=== PATIENT | male | born 1990 | race Caucasian/White ===

== ENCOUNTER 2019-10-31 12:13 | Observation (INO) | payer BC ==
[2019-10-31 12:35] VITALS: BMI 26.6
[2019-10-31] MEDS ORDERED: Acetaminophen 325 MG TAB PO PRN (13:14)
[2019-10-31] MEDS ORDERED: Ondansetron ODT 4 MG TAB PO PRN (13:14)
[2019-10-31] MEDS ORDERED: Ondansetron PF 4 MG/2 ML Vial IVP PRN (13:14)
[2019-10-31] MEDS ORDERED: Sodium Chloride 0.9% 1,000 ML IV SCH (13:15)
[2019-10-31 14:59] LABS: #Lymphocytes 1.1 thou/uL (1.20-3.40); #Monocytes 0.3 thou/uL (0.11-0.59); #Neutrophils 9.5 thou/uL (1.40-6.50); %Basophils 0.2 % (0.0-1.0); %Eosinophils 0.2 % (0.0-10.0); %Lymphocytes 10.3 % (21.0-51.0); %Monocytes 2.7 % (0.0-10.0); %Neutrophils 86.6 % (42.0-75.0); Hemoglobin 16.7 g/dL (14.0-18.0); Mean Corpuscular HGB CONC 34.5 g/dL (32.0-36.0); Mean Corpuscular Hemoglobin 32.3 pg (27.0-31.0); Mean Corpuscular Volume 93.6 fL (78.0-98.0); Mean Platelet Volume 7.3 fL (7.4-10.4); Platelet Count 344 thou/uL (130-400); RBC Distribution Width 11.3 % (11.5-14.5); Red Blood Cell (RBC) Count 5.19 mill/uL (4.70-6.10)
--- NOTE | 2019-10-31 15:17 | HP ---
The patient does not have a primary care physician. CHIEF COMPLAINT: I was feeling weak and shaky. HISTORY OF PRESENT ILLNESS: Mr. Singh is a pleasant 28-year-old gentleman who has no known past medical history. He says that this morning, he got up and felt very weak and felt like he could hardly breathe. He felt also very lethargic, and as a result, he went to the emergency room at the [facility] ER. There, he was noted to be hypoglycemic. It was also noted that he was hypokalemic and also acidotic. They began replacing his potassium and noticed that his heart rate started to drop down into the 40s. This was concerning, and for this reason, he was transferred to our facility for further evaluation. The patient says that he felt nauseated and he threw up a large amount in the ER there. Denies any diarrhea. No fever. No chills. He says that this has never happened to him before. He does admit that he drank a little bit, he calls it moderately compared to what he normally drinks. He said he had 3 mixed drinks with vodka and seltzer as well as 3 White [employer]aws which are spiked seltzer drinks. He says he drank this in about a 4 hour period of time. He says he had been eating that night and had steak and potatoes, and earlier that day, he had 2 tacos. Other than this, he has no other significant past medical history. REVIEW OF SYSTEMS: All systems were reviewed and are negative except for that mentioned in the history of present illness. PAST MEDICAL HISTORY: No history of any heritable diseases. PAST SURGICAL HISTORY: Negative. ALLERGIES: NO KNOWN DRUG ALLERGIES. SOCIAL HISTORY: He is single. He says he was recently unemployed by the COVID-19 pandemic. He does not smoke tobacco cigarettes, but does smoke marijuana, he says about 1 g every 3 to 4 days. He also has tried cocaine, but has not done that recently, but admits to drinking a couple of drinks a day, and he is single. FAMILY HISTORY: Unknown on his mother's side. His sister has diabetes. CURRENT MEDICATIONS: He takes some allergy medications, and he has had a couple of Tylenol off and on. PHYSICAL EXAMINATION: GENERAL: He is alert and oriented. He appears to be in no acute distress. He is well developed and well nourished. VITAL SIGNS: Blood pressure was 132/78, heart rate 83, respiratory rate of 22, temperature is 97.3. HEENT: Pupils are equal, round, and reactive. Extraocular muscles are intact. His sclerae anicteric. Throat, no erythema, no exudates. NECK: No adenopathy. No bruits. LUNGS: Clear to auscultation. There is no wheezing. No rales. No rhonchi. CARDIOVASCULAR: He has normal S1 and S2. There is no S3 or S4. No murmurs, clicks, or rubs. ABDOMEN: Soft, nontender, and nondistended. Positive for bowel sounds. No rebound. No guarding. No organomegaly. EXTREMITIES: There is no clubbing or cyanosis. No edema. No calf tenderness. No joint effusions. He has palpable dorsalis pedis pulses bilaterally. Good capillary refill. SKIN AND INTEGUMENT: There are no skin changes. No rash. LABORATORY DATA: The sodium is 142, potassium 3.2, chloride is 101, CO2 is 22, BUN of 19, creatinine 0.7, glucose is 84. White blood cell count was 28.4, hemoglobin 16.2, hematocrit is 58.6, and platelets are 370. ASSESSMENT AND PLAN: 1. This is a pleasant 28-year-old gentleman, who presented to the emergency room at the [facility] with hypoglycemia. He was also hypokalemic and also had a leukocytosis. He is being admitted here for observation. The hypoglycemia and acidosis, more than likely this is related to alcoholic ketoacidosis and he has been given D5 normal saline and appears to have improved significantly. We will likely change him to normal saline. Thiamine has already been given and we will continue this daily, and hopefully this should correct his acidosis. 2. Hypokalemia, likely due to the above, and this will be replaced. 3. Leukocytosis. This is unclear. This could be related to demargination from the vomiting, but this will be rechecked again later on this afternoon, and hopefully he will be stable enough to be discharged home. Job ID: [id number]
[2019-10-31 15:22] LABS: Anion Gap 21 mmol/L (10-20); BUN (Urea Nitrogen) 18 mg/dL (8.9-20.6); Calc. Creatinine Clearance 146 mL/min (70-130); Calcium 10.4 mg/dL (7.8-10.44); Carbon Dioxide 22 mmol/L (22-29); Chloride 99 mmol/L (98-107); Estimated GFR-MDRD Greater than 90; Glucose 71 mg/dL (70-105); Potassium 4.3 mmol/L (3.5-5.1); Sodium 138 mmol/L (136-145)
[2019-10-31 15:25] VITALS: TEMP 99.5
[2019-10-31 15:41] LABS: Free T4 (Free Thyroxine) 1.26 ng/dL (0.70-1.48); Thyroid Stimulating Hormone 0.8034 uIU/mL (0.35-4.94)
[2019-10-31] MEDS ORDERED: Famotidine 20 MG TAB PO SCH (21:00)
--- NOTE | 2019-11-01 05:05 | DIS ---
DATE OF ADMISSION: 10/31/2019 DATE OF DISCHARGE: 10/31/2019 PRIMARY CARE PHYSICIAN: The patient currently does not have a primary care physician. DISCHARGE DISPOSITION: Home. DISCHARGE DIAGNOSES: 1. Alcoholic ketoacidosis, resolved. 2. Hypokalemia, resolved. 3. Leukocytosis, resolved. 4. Alcohol abuse. DISCHARGE MEDICATIONS: None. CODE STATUS: Full code. ALLERGIES: NO KNOWN DRUG ALLERGIES. HOSPITAL COURSE: Mr. Singh is a pleasant 28-year-old gentleman, who presented to the emergency room complaining of feeling weak and shaky. He was evaluated at the [facility] and found to be hypoglycemic. However, he was also noted to be acidotic and had urine ketones. He was also found to be hypokalemic and had a leukocytosis. They gave him some fluid resuscitation as well as IV dextrose, but were concerned that he would need continued monitoring, and as a result, they asked for transfer to our facility. He was accepted and transferred, and by the time he reached our facility, he was essentially back to baseline. He was actually asking to go home. He admitted that he might have drunk a little bit more than he typically does. The full details of which are outlined in the history and physical. We discussed the need to cut back on his alcohol intake and that mostly his symptoms are likely explained by the excessive alcohol. We repeated his blood work, and his white blood cell count was trending down from 28,000 down to 11,000 just in a few hours. The sodium was at 138, and his potassium was 4.3. Thyroid function tests were done and were negative, and his serum calcium was 10.4. Given these findings, I felt it was safe to go ahead and discharge the patient home, and he should have close outpatient followup. Job ID: [id number]
== END 2019-10-31 16:58 | disposition home or self-care (01) ==
LOC: INTOOBSV 12:13 → IMCU/EMU 12:13
PROVIDERS: ADMIT Internal Medicine; ATTEND Internal Medicine
DX: E87.2 Acidosis (principal); E16.2 Hypoglycemia, unspecified; E87.6 Hypokalemia; D72.829 Elevated white blood cell count, unspecified; F10.10 Alcohol abuse, uncomplicated
CPT/HCPCS: 36415; 36416; 80048; 84439; 84443; 85025; G0378